=== PATIENT | male | born 1965 | race Caucasian/White ===

== ENCOUNTER → 2017-01-15 | Outpatient (CLI) | payer OTHER ==
[~2017-01-15] MED LIST: ALBU18002 INH; ALLO300T2 PO; AMLO-110 PO; CETI10TA10 PO; LISI-725 PO; OXYC-57 PO; PANT40TA PO
[2017-01-15 17:51] LABS: URINE APPEARANCE CLEAR (CLEAR); URINE BILIRUBIN NEG (NEG); URINE COLOR YELLOW; URINE NITRITE NEG (NEG); URINE SPECIFIC GRAVITY 1.021 (1.000-1.030); UROBILINOGEN NEG (NEG)
[2017-01-15 18:05] LABS: MANUAL MICROSCOPIC REQUIRED? NO; REVIEW REQ? NO
== END | disposition home or self-care (01) ==
LOC: C.LAB 17:20
PROVIDERS: ATTEND Physician Assistant
DX: R39.9 Unspecified symptoms and signs involving the genitourinary system (principal)

== ENCOUNTER → 2017-04-09 | Outpatient (CLI) | payer OTHER ==
--- NOTE | 2017-04-09 15:16 | DIAGNOSTIC IMAGING REPORT ---
CHEST 2 VIEWS ROUTINE CLINICAL HISTORY: 51 years-old Male presenting with Dry cough. TECHNIQUE: PA and lateral views of the chest were obtained. COMPARISON: CT from 03/18/2014 and chest x-ray from 03/15/2014. FINDINGS: Cardiomediastinal silhouette normal. Suggestion of vague reticulonodular opacities in the right lower lung though no correlate is noted on lateral view. No other focal infiltrate. No pleural effusion or pneumothorax. Osseous structures normal. Upper abdomen normal. IMPRESSION: 1. Questionable opacity in the right lower lung without correlate on lateral view. This may represent overlapping shadows. If there is clinical concern, chest CT to be obtained. Electronically signed by: Tom Galloway M.D. 04/09/2017 3:15 PM Dictated Date/Time: 04/09/2017 3:14 PM
== END | disposition home or self-care (01) ==
LOC: C.RADBC 14:32
PROVIDERS: ATTEND Physician Assistant
DX: R05 Cough (principal)

== ENCOUNTER 2017-08-24 20:32 | Emergency (ER) | payer OTHER ==
[~2017-08-24] VITALS: Ht 182.9 cm; Wt 142.1 kg
[2017-08-24 20:40] VITALS: TEMP 36.8; Ht 182.9 cm; Wt 142.1 kg
--- NOTE | 2017-08-24 21:33 | EMERGENCY ROOM VISIT NOTE ---
History First contact with patient: 20:59 Chief Complaint: ABDOMINAL PAIN Stated Complaint: STOMACH PAINS Nursing Triage Summary: Pt c/o pain throughout abd since 11 AM today, pt states that pain has been a steady pain since, also c/o chills. Pt denies n/v, urinary or bowel symptoms. History of Present Illness The patient is a 51 year old male who presents to the Emergency Room with complaints of intermittent abdominal pain since 1 hour after eating lunch. Patient states he and his ate lunch at approximately 1130. Patient denies any recent change in diet or new medications. No recent travel and no sick contacts. Patient states pain initially began in his lower abdomen but has since moved to the upper abdomen. States pain comes and goes, does not seem to be related to a particular position but does feel better laying down. States pain is sharp and feels as though it is moving around. No nausea or vomiting. Patient states he had 2 normal bowel movements this morning. No recent black or bloody stools. No change in urine or urinary habits. Patient states he had chills at home however took his temperature and did not have a fever. Patient with a known chronic umbilical hernia which she states is nontender and does not appear bigger to him than usual. Patient denies any abdominal distention. Patient had bilateral umbilical hernia repairs as an infant, has had no other abdominal surgeries. Review of Systems See HPI for pertinent positives & negatives. A total of 10 systems reviewed and were otherwise negative. Past Medical/Surgical History See HPI for pertinent positives & negatives. A total of 10 systems reviewed and were otherwise negative. Social History Smoking Status: Former Smoker Current/Historical Medications Scheduled Allopurinol (Zyloprim), 300 MG PO QAM W/FOOD Amlodipine (Norvasc), 5 MG PO QAM W/FOOD Cetirizine Hcl (Zyrtec), 10 MG PO QAM W/FOOD Dicyclomine Hcl (Bentyl), 20 MG PO Q8 Lisinopril (Zestril), 20 MG PO QAM W/FOOD Pantoprazole (Protonix), 40 MG PO QAM W/FOOD Scheduled PRN Albuterol Sulfate (Proair Respiclick), 2 PUFFS INH Q4H PRN for SOB/Wheezing Physical Exam Vital Signs Date Time Temp Pulse Resp B/P (MAP) Pulse Ox O2 Delivery O2 Flow Rate FiO2 4/15/18 22:35 89 20 140/89 97 Room Air 08/24/17 21:31 99 08/24/17 20:40 36.8 96 20 163/94 96 Room Air Physical Exam GENERAL: alert, well appearing, well nourished, no distress, non-toxic EYE EXAM: normal conjunctiva, PERRL and EOM's grossly intact OROPHARYNX: no exudate, no erythema, lips, buccal mucosa, and tongue normal and mucous membranes are moist NECK: supple, no nuchal rigidity, no adenopathy, non-tender LUNGS: Clear to auscultation. Normal chest wall mechanics, no w/r/r HEART: no murmurs, S1 normal and S2 normal ABDOMEN: abdomen soft, non-tender, normo-active bowel sounds, no masses, no rebound or guarding. Small umbilical hernia noted, nontender, and easily reducible. BACK: Back is symmetrical on inspection and there is no deformity, no midline tenderness, no CVA tenderness. SKIN: no rashes and no bruising UPPER EXTREMITIES: upper extremities are grossly normal. LOWER EXTREMITIES: No pitting edema. NEURO EXAM: Normal sensorium, cranial nerves II-XII grossly intact, normal speech, no gross weakness of arms, no gross weakness of legs. Gross sensation intact. Medical Decision & Procedures ER Provider Diagnostic Interpretation: ABD/PELVIS IV CONTRAST ONLY CLINICAL HISTORY: 51 years-old Male presenting with abd pain. TECHNIQUE: Multidetector CT of the abdomen and pelvis was performed after the administration of intravenous contrast. IV contrast: 93 mL of Optiray 320. A dose lowering technique was used consistent with the principles of ALARA (as low as reasonably achievable). COMPARISON: 12/15/2014. CT DOSE (mGy.cm): The estimated cumulative dose is 1904.81 mGy.cm. FINDINGS: Paper Grader topogram: Unremarkable. Lung bases: Lungs and pleural spaces clear. Normal heart size. No pericardial or pleural effusion. Liver: Normal morphology. No liver lesion. Patent hepatic vasculature. Biliary: No intrahepatic or extrahepatic biliary ductal dilatation. Normal gallbladder. Pancreas: Normal. Spleen: Few subcentimeter hypodensities in the spleen, indeterminate but possibly hemangiomas or lymphangiomas. Adrenal glands: Normal. Kidneys and ureters: Nonobstructing 5 mm calculus at the lower pole the right kidney. Additional punctate lower pole calculus in the right kidney. Punctate left renal calculi versus medullary pyramids calcification. No hydronephrosis. Normal renal enhancement. Ureters normal. Bladder: Incompletely evaluated secondary to underdistention. Pelvic organs: Prostate and seminal vesicles normal. Bowel: Normal. No bowel obstruction. Peritoneal cavity: No free fluid or intraperitoneal gas. Lymph nodes: No enlarged lymph nodes in the abdomen or pelvis. Vasculature: Aorta and IVC patent and normal in caliber. Abdominal wall: Small fat-containing umbilical hernia. Musculoskeletal: Degenerative changes of the spine. IMPRESSION: 1. Bilateral nonobstructing nephrolithiasis. No hydronephrosis. No evidence of a recently passed calculus. 2. No acute intra-abdominal pathology. Electronically signed by: Tom Galloway M.D. 08/24/2017 10:36 PM Dictated Date/Time: 08/24/2017 10:30 PM Laboratory Results 08/24/17 21:30 Red Blood Count 4.41, Mean Corpuscular Volume 87.8, Mean Corpuscular Hemoglobin 30.2, Mean Corpuscular Hemoglobin Concent 34.4, Mean Platelet Volume 9.5, Neutrophils (%) (Auto) 70.1, Lymphocytes (%) (Auto) 17.9, Monocytes (%) (Auto) 9.7, Eosinophils (%) (Auto) 1.9, Basophils (%) (Auto) 0.2, Neutrophils # (Auto) 6.24, Lymphocytes # (Auto) 1.59, Monocytes # (Auto) 0.86, Eosinophils # (Auto) 0.17, Basophils # (Auto) 0.02 08/24/17 21:30 Test 08/24/17 21:30 08/24/17 21:39 08/24/17 22:35 White Blood Count 8.90 K/uL (4.8-10.8) Red Blood Count 4.41 M/uL (4.7-6.1) Hemoglobin 13.3 g/dL (14.0-18.0) Hematocrit 38.7 % (42-52) Mean Corpuscular Volume 87.8 fL (80-100) Mean Corpuscular Hemoglobin 30.2 pg (25-34) Mean Corpuscular Hemoglobin Concent 34.4 g/dl (32-36) Platelet Count 195 K/uL (130-400) Mean Platelet Volume 9.5 fL (7.4-10.4) Neutrophils (%) (Auto) 70.1 % Lymphocytes (%) (Auto) 17.9 % Monocytes (%) (Auto) 9.7 % Eosinophils (%) (Auto) 1.9 % Basophils (%) (Auto) 0.2 % Neutrophils # (Auto) 6.24 K/uL (1.4-6.5) Lymphocytes # (Auto) 1.59 K/uL (1.2-3.4) Monocytes # (Auto) 0.86 K/uL (0.11-0.59) Eosinophils # (Auto) 0.17 K/uL (0-0.5) Basophils # (Auto) 0.02 K/uL (0-0.2) RDW Standard Deviation 43.3 fL (36.4-46.3) RDW Coefficient of Variation 13.6 % (11.5-14.5) Immature Granulocyte % (Auto) 0.2 % Immature Granulocyte # (Auto) 0.02 K/uL (0.00-0.02) Prothrombin Time 10.7 SECONDS (9.0-12.0) Prothromb Time International Ratio 1.0 (0.9-1.1) Anion Gap 6.0 mmol/L (3-11) Est Creatinine Clear Calc Drug Dose 117.3 ml/min Estimated GFR () 90.6 Estimated GFR (Non- 78.2 BUN/Creatinine Ratio 11.8 (10-20) Calcium Level 9.3 mg/dl (8.5-10.1) Total Bilirubin 0.8 mg/dl (0.2-1) Aspartate Amino Transf (AST/SGOT) 17 U/L (15-37) Alanine Aminotransferase (ALT/SGPT) 33 U/L (12-78) Alkaline Phosphatase 119 U/L (45-117) Troponin I < 0.015 ng/ml (0-0.045) Total Protein 7.8 gm/dl (6.4-8.2) Albumin 4.1 gm/dl (3.4-5.0) Globulin 3.7 gm/dl (2.5-4.0) Albumin/Globulin Ratio 1.1 (0.9-2) Lipase 219 U/L (73-393) Bedside Lactic Acid Venous 0.53 mmol/L (0.90-1.70) Urine Color YELLOW Urine Appearance CLEAR (CLEAR) Urine pH 5.5 (4.5-7.5) Urine Specific [place] 1.019 (1.000-1.030) Urine Protein NEG (NEG) Urine Glucose (UA) NEG (NEG) Urine Ketones NEG (NEG) Urine Occult Blood NEG (NEG) Urine Nitrite NEG (NEG) Urine Bilirubin NEG (NEG) Urine Urobilinogen NEG (NEG) Urine Leukocyte Esterase NEG (NEG) Medications Administered Medications (Trade) Dose Ordered Sig/Priscilla Route Start Time Stop Time Status Last Admin Dose Admin Dicyclomine HCl (Bentyl Cap) 20 mg NOW ONCE PO 08/24/17 22:15 08/24/17 22:16 DC 08/24/17 22:15 20 MG Ketorolac Tromethamine (Toradol Inj) 30 mg NOW STAT IV 08/24/17 23:03 08/24/17 23:04 DC 08/24/17 23:09 30 MG Famotidine (Pepcid 20mg Iv Push) 20 mg ONE STAT IV 08/24/17 23:03 08/24/17 23:04 DC 08/24/17 23:08 20 MG ECG Per My Interpretation Indication: abdominal pain Rate (beats per minute): 93 Rhythm: normal sinus Findings: no acute ischemic change, other (isolated inverted T wave in III) ED Course 2234: Patient updated on results, still having intermittent abdominal pain. 0: Patient states pain is improved. Discussed symptoms to watch and return for, diet and hydration at home, he verbalized understanding was agreeable with plan. Medical Decision Differential diagnosis: Etiologies such as appendicitis, diverticulitis, PUD, biliary pathology, UTI, pancreatitis, obstruction, mesenteric ischemia, aortic pathology, infections, inflammatory bowel disease, renal colic, as well as others were entertained. Medication Reconcilliation Current Medication List: was personally reviewed by me Blood Pressure Screening Patient's blood pressure: Elevated blood pressure Blood pressure disposition: Referred to PCP Impression Primary Impression: Abdominal pain Departure Information Dispostion Home / Self-Care Condition GOOD Prescriptions Dicyclomine Hcl (BENTYL) 10 Mg Cap 20 MG PO Q8 for Pain, #20 CAP Prov: Kelsey Whitehead, 08/25/17 Referrals Tom Correa M.D. (PCP) Patient Instructions My [facility] Additional Instructions Please drink clear liquids at frequent intervals to stay well-hydrated. Please eat a bland and light diet until you are feeling better. Please continue to monitor for any change in symptoms. If you have any worsening pain, develop a change in bowel movements including black or bloody stools, develop vomiting, fevers or chills, weakness or dizziness, you have any other new concerns, please return the emergency room. Problem Qualifiers Primary Impression: Abdominal pain Abdominal location: generalized Qualified Codes: R10.84 - Generalized abdominal pain
[2017-08-24 21:44] LABS: BASO % 0.2 %; BASO ABS # 0.02 K/uL (0-0.2); EOS % 1.9 %; EOS ABS # 0.17 K/uL (0-0.5); HEMATOCRIT 38.7 % (42-52); HEMOGLOBIN 13.3 g/dL (14.0-18.0); IG# 0.02 K/uL (0.00-0.02); LYMPH % 17.9 %; LYMPH ABS # 1.59 K/uL (1.2-3.4); MEAN CELL VOLUME 87.8 fL (80-100); MEAN CORPUSCULAR HEMOGLOBIN 30.2 pg (25-34); MEAN CORPUSCULAR HGB CONC 34.4 g/dl (32-36); MEAN PLATELET VOLUME 9.5 fL (7.4-10.4); MONO % 9.7 %; MONO ABS # 0.86 K/uL (0.11-0.59); NEUT % 70.1 %; NEUT ABS # 6.24 K/uL (1.4-6.5); PLATELET COUNT 195 K/uL (130-400); RED CELL DISTRIBUTION WIDTH CV 13.6 % (11.5-14.5); RED CELL DISTRIBUTION WIDTH SD 43.3 fL (36.4-46.3)
[2017-08-24] MEDS ORDERED: OPTIRAY 320 IV PRN (22:00)
[2017-08-24 22:01] LABS: ALBUMIN 4.1 gm/dl (3.4-5.0); ALT/SGPT 33 U/L (12-78); AST/SGOT 17 U/L (15-37); BLOOD UREA NITROGEN 13 mg/dl (7-18); CALCIUM 9.3 mg/dl (8.5-10.1); CARBON DIOXIDE 29 mmol/L (21-32); CREATININE 1.09 mg/dl (0.60-1.40); GLUCOSE 100 mg/dl (70-99); LIPASE 219 U/L (73-393); POTASSIUM 3.8 mmol/L (3.5-5.1); SODIUM 138 mmol/L (136-145)
[2017-08-24 22:06] LABS: ALKALINE PHOSPHATASE 119 U/L (45-117); TOTAL PROTEIN 7.8 gm/dl (6.4-8.2)
[2017-08-24] MEDS ORDERED: DICYCLOMINE HCL 10 MG CAP PO ONE (22:15)
[2017-08-24 22:35] VITALS: BP 140/89; PULSE 89; O2SAT 97
--- NOTE | 2017-08-24 22:38 | DIAGNOSTIC IMAGING REPORT ---
ABD/PELVIS IV CONTRAST ONLY CLINICAL HISTORY: 51 years-old Male presenting with abd pain. TECHNIQUE: Multidetector CT of the abdomen and pelvis was performed after the administration of intravenous contrast. IV contrast: 93 mL of Optiray 320. A dose lowering technique was used consistent with the principles of ALARA (as low as reasonably achievable). COMPARISON: 12/15/2014. CT DOSE (mGy.cm): The estimated cumulative dose is 1904.81 mGy.cm. FINDINGS: Medical Technical Writer topogram: Unremarkable. Lung bases: Lungs and pleural spaces clear. Normal heart size. No pericardial or pleural effusion. Liver: Normal morphology. No liver lesion. Patent hepatic vasculature. Biliary: No intrahepatic or extrahepatic biliary ductal dilatation. Normal gallbladder. Pancreas: Normal. Spleen: Few subcentimeter hypodensities in the spleen, indeterminate but possibly hemangiomas or lymphangiomas. Adrenal glands: Normal. Kidneys and ureters: Nonobstructing 5 mm calculus at the lower pole the right kidney. Additional punctate lower pole calculus in the right kidney. Punctate left renal calculi versus medullary pyramids calcification. No hydronephrosis. Normal renal enhancement. Ureters normal. Bladder: Incompletely evaluated secondary to underdistention. Pelvic organs: Prostate and seminal vesicles normal. Bowel: Normal. No bowel obstruction. Peritoneal cavity: No free fluid or intraperitoneal gas. Lymph nodes: No enlarged lymph nodes in the abdomen or pelvis. Vasculature: Aorta and IVC patent and normal in caliber. Abdominal wall: Small fat-containing umbilical hernia. Musculoskeletal: Degenerative changes of the spine. IMPRESSION: 1. Bilateral nonobstructing nephrolithiasis. No hydronephrosis. No evidence of a recently passed calculus. 2. No acute intra-abdominal pathology. Electronically signed by: Tom Galloway M.D. 08/24/2017 10:36 PM Dictated Date/Time: 08/24/2017 10:30 PM
[2017-08-24] MEDS ORDERED: KETOROLAC TROMETHAMINE 30 MG/ML VIAL IV STA (23:03)
[2017-08-24] MEDS ORDERED: FAMOTIDINE 20MG/5ML IV PUSH IV STA (23:03)
[2017-08-25] MEDS ORDERED: DICY10CA55 PO
== END 2017-08-25 00:12 | disposition home or self-care (01) ==
LOC: C.EDB 20:33 → C.EDC 08-25 00:12
DX: R10.10 Upper abdominal pain, unspecified (principal); R03.0 Elevated blood-pressure reading, without diagnosis of hypertension; K42.9 Umbilical hernia without obstruction or gangrene; Z87.891 Personal history of nicotine dependence

== ENCOUNTER 2024-02-09 05:08 | Observation (INO) ==
--- NOTE | 2024-01-16 11:54 | PAT Medication Instructions ---
Medication Instructions Date of Service January 16, 2024 Home Medications Medication Instructions Recorded pantoprazole 40 mg tablet,delayed 40 mg PO QAM #90 tabs 08/27/23 release (Protonix) duloxetine 20 mg capsule,delayed 20 mg PO QAM #90 caps 09/23/23 release vmoetib-wybdulsccrokd-zzcbfgpx 250 mg-250 mg-65 mg tablet (Excedrin Migraine) 2 tab PO DAILY PRN Migraine Headache loratadine 10 mg tablet (Claritin) 10 mg PO QAM pantoprazole 40 mg tablet,delayed release (Protonix) 40 mg PO QAM duloxetine 20 mg capsule,delayed release 20 mg PO QAM albuterol sulfate 90 mcg/actuation aerosol inhaler 1 inh inhalation Q6 PRN Shortness Of Breath allopurinol 300 mg tablet 300 mg PO QAM amlodipine 5 mg tablet 5 mg PO QAM clobetasol 0.05 % topical cream 1 applic topical BID PRN Rash hydrochlorothiazide 25 mg tablet 25 mg PO QAM lisinopril 20 mg tablet 20 mg PO QAM ASK your surgeon for instructions dtjkzxy-lbsbmpazenjnd-jutygfst 250 mg-250 mg-65 mg tablet (Excedrin Migraine) 2 tab PO DAILY PRN Migraine Headache STOP taking 24 hours before surgery clobetasol 0.05 % topical cream 1 applic topical BID PRN Rash DO NOT take the morning of surgery loratadine 10 mg tablet (Claritin) 10 mg PO QAM hydrochlorothiazide 25 mg tablet 25 mg PO QAM lisinopril 20 mg tablet 20 mg PO QAM Take morning of surgery With a small sip of water, OTHERWISE NOTHING TO EAT OR DRINK AFTER MIDNIGHT: pantoprazole 40 mg tablet,delayed release (Protonix) 40 mg PO QAM duloxetine 20 mg capsule,delayed release 20 mg PO QAM albuterol sulfate 90 mcg/actuation aerosol inhaler 1 inh inhalation Q6 PRN Shortness Of Breath (use if needed; please bring rescue inhaler with you to hospital day of surgery if possible) allopurinol 300 mg tablet 300 mg PO QAM amlodipine 5 mg tablet 5 mg PO QAM Take evening before surgery albuterol sulfate 90 mcg/actuation aerosol inhaler 1 inh inhalation Q6 PRN Shortness Of Breath (if needed) Other Notes If you have any questions please call us at [phone] or [phone] or [phone] or [phone]
--- NOTE | 2024-01-23 09:51 | Anesthesiology Consultation ---
Date of Service January 23, 2024 Assessment & Plan (1) Encounter for pre-operative examination: - awaiting [place] PCP clearance. - Patient and surgeon's office made aware he will need clearance. Workload note sent to [place] PCP. - Patient states he typically takes medication with food, states though he feels it will be fine to take amlodipine and pantoprazole NPO. - Patient notes that after shoulder surgery he had an erythematous pruritic rash in area wipes/prep DOS were used, he notes that he used chlorhexidine wipes and did not develop a rash until after surgery; denies blisters/swelling or systemic symptoms. Resolved quickly with clobetasol cream. We discussed option of trial ing chlorhexidine wipes before the evening before surgery for confirmation it did not contribute to rash and he plans to trial this on an arm during the day and notify our office if he has any reaction. Surgeon's office notified. - Outpatient joint assessment: Patient is currently scheduled for inpatient pathway. If re-evaluated and patient/surgeon requests outpatient pathway, patient is not ideal candidate for outpatient joint program from anesthesia standpoint. Chart Review Chart Review: Pending: Refer to Additional Notes / Consult section and Patient seen in Pre Admission Testing Teaching & Discussion Pre-Anesthesia Teaching/Discussion Notes: Instructed NPO after midnight before surgery, except medications with 15 cc of water. Medication instructions provided according to the PAT guidelines. History Surgery Operation Date: 02/09/24 10:40 Proposed Procedures p Right Total Knee Arthroplasty - Micheal Perez MD Height/Weight Height: 6 ft 1 in Weight: 152.1 kg Allergies Allergy/AdvReac Type Severity Reaction Status Date / Time gabapentin Allergy Severe throat and Verified 01/15/24 11:48 chest tightness levofloxacin Allergy Severe LARGE RASH Verified 01/15/24 11:48 ON BACK AND NECK doxycycline Allergy Intermediate Rash Verified 01/15/24 11:48 adhesive tape Allergy Mild Rash Verified 01/15/24 12:06 cephalexin Allergy Mild Rash Verified 01/15/24 11:48 Penicillins Allergy Mild RASH Verified 01/15/24 11:48 Sulfa (Sulfonamide Allergy Mild "I DON'T Verified 01/15/24 11:48 Antibiotics) REMEMBER" sulfamethoxazole Allergy Mild "I DON'T Verified 01/15/24 11:48 REMEMBER" trimethoprim Allergy Mild "I DON'T Verified 01/15/24 11:48 REMEMBER" fexofenadine [From [facility]] Allergy Unknown CAN'T Verified 01/15/24 11:48 REMEMBER nitrofurantoin Allergy Unknown UNKNOWN Verified 01/15/24 11:48 duloxetine AdvReac Mild itching Verified 01/15/24 12:06 Medications Home Medications Medication Instructions Recorded Confirmed Last Taken anuvctm-wyegjbxisbexl-exkmjlbu 250 2 tab PO DAILY PRN Migraine 02/04/18 01/15/2410/02/20 mg-250 mg-65 mg tablet (Excedrin Headache Migraine) loratadine 10 mg tablet (Claritin) 10 mg PO QAM 01/02/21 01/15/24 02/19/23 10:00 pantoprazole 40 mg tablet,delayed 40 mg PO QAM #90 tabs 08/27/23 01/15/24 Unknown release (Protonix) duloxetine 20 mg capsule,delayed 20 mg PO QAM #90 caps 09/23/23 01/15/24 Unknown release albuterol sulfate 90 mcg/actuation 1 inh inhalation Q6 PRN Shortness 01/15/24 01/15/24 Unknown aerosol inhaler Of Breath allopurinol 300 mg tablet 300 mg PO QAM 01/15/24 01/15/24 Unknown amlodipine 5 mg tablet 5 mg PO QAM 01/15/24 01/15/24 Unknown clobetasol 0.05 % topical cream 1 applic topical BID PRN Rash 01/15/24 01/15/24 Unknown hydrochlorothiazide 25 mg tablet 25 mg PO QAM 01/15/24 01/15/24 Unknown lisinopril 20 mg tablet 20 mg PO QAM 01/15/24 01/15/24 Unknown walker #1 ea 01/23/24 01/23/24 Unknown Past Medical History Medical History (Updated 01/23/24 @ 10:04 by Vicky Salvador PA-C) Adult situational stress disorder Asthma rescue inhaler is used daily chronically per patient Chronic venous insufficiency Dyslipidemia GERD (gastroesophageal reflux disease) controlled, stable per pt History of anemia History of COVID-2022--mild symptoms, no symptoms now History of kidney stones Hx of gout Hypertension controlled, stable per pt Lymphedema hx due to chronic venous insufficiency Neuropathic pain Osteoarthritis Situational depression Sleep apnea no device used by patient Venous stasis ulcer hx of--healed, treated at wound clinic Patient denies h/o stroke, seizures, heart attack, heart failure, DM, blood clots/DVTs or blood transfusions. Exercise / Class Metabolic Activity II 4-5 Yardwork/Stairs/Walk up hill (denies chest discomfort or shortness of breath with one flight of stairs) Past Family History Family History Father Prostate cancer Lung cancer Stroke Mother Breast cancer Aortic aneurysm Other No family history of adverse response to anesthesia Denies family history of Ovarian cancer Myocardial infarction Colorectal cancer Past Surgical History Surgical History (Updated 01/23/24 @ 10:05 by Vicky Salvador PA-C) H/O oral surgery History of appendectomy History of arthroscopy of left shoulder (02/20/23) Left Shoulder Arthroscopy, Subscapularis Rotator Cuff Repair, extensive debridement, subacromial Decompression, arthroscopic biceps Tenodesis(Left) - Dean Ugalde MD History of arthroscopy of right knee History of cystoscopy History of hernia repair bilat inguinal hernias History of lithotripsy History of surgery (~2018) right bicep repair [place] teeth removed Past Anesthesia History No Family Hx of Anesthesia Complications and Other (patient states that once after surgery 30 years was found to be hyperactive and doing jumping jacks in post-op) History of PONV No Hx of PONV and No Hx of Motion Sickness Social History Smoking Status: Former smoker tobacco type: cigarettes Smoking cigarettes per day: 2015 Do You Dip or Chew Tobacco: No Hx Alcohol Use: Yes (very rarely) Alcohol type: beer alcohol intake frequency: holidays/special occasions only Hx Substance Use: No substance use type: does not use Review of Systems Patient states that he has had infectious symptoms for 3 weeks since his was ill last month. He is experiencing nasal congestion, chest congestion, sore throat, cough which is non-productive shortness of breath using albuterol inhaler daily which was his average prior to illness; states that chills and myalgias occurred 6 days ago; he states that today is only experiencing sore throat; denies chest discomfort, fever, nausea, vomiting or rash. COVID test is negative. Patient denies chest pain, shortness of breath, dyspnea on exertion, or palpitations. Physical Exam Vital Signs Vitals BP 131/68 P 72 TEMP 97.6 SP02 95% on RA RESP 18 Physical Patient resting comfortably in chair in no acute distress, alert and oriented, responding appropriately throughout visit Full cervical extension range of motion without pain TMD < 3 finger breadths Mallampati Score 3 Dentition: several broken teeth; denies chipped or loose teeth, caps/crowns, implants or bridges Lungs: normal respiratory effort. Good air movement, clear throughout to auscultation, no adventitious breath sounds Cardiac: regular rate and rhythm, no murmurs noted Carotid arteries: negative bruit bilat Lab Results Anesthesia Preop Results Results Anesthesia Widget: WBC 6.70 K/ul (4.8-10.8) 01/23/24 Hgb 11.7 g/dl (14.0-18.0) L 01/23/24 Hct 36.1 % (42.0-52.0) L 01/23/24 Plt 224 K/uL (130-400) 01/23/24 Na 139 mmol/L (136-145) 01/23/24 K 4.1 mmol/L (3.5-5.1) 01/23/24 Cl 101 mmol/L (98-107) 01/23/24 CO2 32 mmol/L (21-32) 01/23/24 BUN 15 mg/dl (6-23) 01/23/24 Creat 0.84 mg/dl (0.6-1.4) 01/23/24 Glucose Level 92 mg/dl (70-99(Fasting)) 01/23/24 PT 10.7 Seconds (9.0-12.0) 01/23/24 PTT 27 Seconds (21-31) 01/23/24 INR 1.0 (0.9-1.1) 01/23/24 COVID-19 PCR NEGATIVE (Negative) 01/23/24 Blood Type O Positive 01/23/24 Antibody Screen NEGATIVE 01/23/24 Testing Electrocardiogram Date: 01/23/24 Sinus rhythm with premature atrial complexes, rate 72 bpm Chest X-Ray Date: 01/23/24 No acute cardiopulmonary findings. Echocardiogram Date: 11/29/19 EF 60-65% No LV regional wall motion abnormalities Grade I diastolic dysfunction Mild cLVH Mildly dilated LA
[~2024-02-09 05:08] MED LIST changes: -ALBU18002 INH; +ALLERGY Noted to ORDERED Medication SCH; -ALLO300T2 PO; -AMLO-110 PO; -CETI10TA10 PO; -LISI-725 PO; -OXYC-57 PO; -PANT40TA PO
[2024-02-09] MEDS: METOCLOPRAMIDE HCL 10 MG TABLET PO SCH (05:49)
[2024-02-09] MEDS: CeleBREX 200 MG CAP PO SCH (05:49)
[2024-02-09] MEDS: ACETAMINOPHEN 500 MG TAB PO SCH ×3 (05:49→20:39)
[2024-02-09] MEDS: LR 500ML BOLUS, THEN 15ML/HR IV SCH (05:49)
[2024-02-09] MEDS: FAMOTIDINE 20 MG TAB PO SCH (05:50)
[2024-02-09] MEDS: LR 60ML/HR IV SCH (05:50)
[2024-02-09] MEDS ORDERED: ROPIVACAINE 0.5% 5 MG/ML 30 ML VIAL ONE (06:23)
[2024-02-09] MEDS ORDERED: BUPIVACAINE 0.5 % 5 MG/1 ML PF 10ML VIAL ONE (06:23)
[2024-02-09] MEDS ORDERED: MIDAZOLAM HCL 1 MG/ML 2ML VIAL ONE (06:36)
--- NOTE | 2024-02-09 06:42 | History & Physical Bridge Note ---
Date of Service February 09, 2024 History & Physical Bridge Note I have examined the patient, reviewed the History & Physical and in the interval since the performance of the History & Physical I have noted the following changes of clinical significance: no changes noted
[2024-02-09] MEDS ORDERED: Nursing to Pharmacy Communication SCH ×2 (06:45→14:15)
[2024-02-09] MEDS ORDERED: PROPOFOL IV EMULSION 10 MG/ML 100 ML VIAL IV ONE (06:47)
[2024-02-09] MEDS: ceFAZolin 3000MG 3,000 MG/72.5 ML BAG IV SCH (06:58)
[2024-02-09] MEDS ORDERED: fentaNYL citrate PF 100 MCG/2 ML VIAL IV PRN (07:08)
[2024-02-09] MEDS ORDERED: ATROPINE SULFATE 0.1 MG/ML 10ML SYR IV PRN (07:08)
[2024-02-09] MEDS ORDERED: ONDANSETRON INJ 2 MG/ML 2 ML VIAL IV PRN ×2 (07:08→09:51)
[2024-02-09] MEDS ORDERED: ePHEDrine sulfate 50 MG/ML AMP IV PRN (07:08)
[2024-02-09] MEDS ORDERED: ePHEDrine sulfate 50 MG/ML AMP ONE (07:23)
[2024-02-09] MEDS ORDERED: PHENYLEPHRINE 100MCG/ML 10ML SYR IV ONE (07:23)
[2024-02-09] MEDS: ROPIV 0.5% 246mg, Ketorolac 30mg, EPINEPHrine 0.5mg in NSS INFIL SCH (07:29)
[2024-02-09] MEDS: ORTHO JOINT ANESTHETIC ONE (07:30)
[2024-02-09] MEDS: TRANEXAMIC ACID 1,000 MG **IV Intra-op IV SCH (07:47)
[2024-02-09] MEDS: VANCOMYCIN HCL 1000MG/20ML VIAL ONE (07:59)
[2024-02-09] MEDS ORDERED: PHENYLEPHRINE HCL 10 MG/ML VIAL ONE (08:00)
--- NOTE | 2024-02-09 08:51 | Operative Report ---
PG Post Operative Report Pre & Post Diagnosis Operation Date: 02/09/24 07:00 Pre-Op Diagnosis: Right Knee Advanced Degenerative Joint Disease Post-Op Diagnosis: Right Knee Advanced Degenerative Joint Disease I identified the patient and participated in the time-out.: Yes Procedure Operation Date: 02/09/24 07:00 Actual Procedures p Right Total Knee Arthroplasty(Right) - Micheal Perez MD Surgeon Micheal Perez MD Premium Cancellation Clerk Erich Cleveland PA-C Estimated Blood Loss 100 Findings Consistent with Post-Op Diagnosis Operative findings revealed moderate to advanced right knee tricompartment DJD. He did have focal areas of grade 4 changes in all 3 compartments most severe on the medial side. Not much in way of bony eburnation. Moderate-sized joint effusion. Very large soft tissue envelope. Specimens Right knee sent for pathology. Anesthesia Type Spinal MAC Complications none Disposition Accompanied Patient To Recovery: No Indications The patient is a 58-year-old very large gentleman whose had a several year history of increasing right knee pain discomfort. He had a previous knee arthroscopy done elsewhere about 4 years ago with minimal relief. X-rays show progressive knee arthritis. He failed all conservative measures. He elected proceed with total knee arthroplasty. Description of Procedure Operative implants consist of: 1. Biomet Vanguard size 70 right posterior stabilized femoral component. 2. Biomet size 79 tibial tray. 3. 10 mm posterior stabilized polyethylene insert. 4. 34 x 8-1/2 all poly patella. The patient was taken to the op room, identified, placed on the operating table in the supine position but all conductors were appropriately padded. IV antibiotics tried by anesthesia team. A spinal anesthetic and adductor canal block had been provided in the holding area. A right thigh turn was then placed. The right lower extremity was then prepped and draped in usual sterile fashion. The right leg was elevated and exsanguinated with use of an Esmarch and a turn was placed at 350 mmHg. An anterior approach to the right knee was then performed to longitudinal incision centered over the patella. Sharp dissection was Through subcutaneous tissue down the extensor mechanism. A medial parapatellar arthrotomy incision was made. Some subperiosteal dissection was carried out medially. The fat pad was dissected beneath the patella tendon. The lateral patellofemoral ligament was released. Patella subluxated laterally and the knee was flexed. The osteophytes taken off distal femur. The ACL and PCL were then released from the distal femur and in the tibia subluxate anteriorly. The external tibial alignment jig was then placed on the anterior face the tibia and adjusted 14 mm medially. Proximal tibial cut was made to take about 2 to 3 mm of bone from the medial side. He did not have much in the way of bony wear. The tibia was sized to a size 79 in order to maximize coverage. Attention drawn the femur. The distal femur with a sharp drill. Intramedullary canal was suction. A right 6 degree valgus cutting guide was placed but the distal femoral cutting block was pinned in place. This femoral cut was made to take an additional 3 mm of bone off distal femur. The femur was then sized to a size 70. The AP cutting block was pinned parallel to the epicondylar axis which was 3 degrees of exte rnal rotation. The anterior cut, anterior chamfer, posterior cut, posterior chamfer cuts were made. The box cutting guide was placed in the just slight lateral box cut was made. The knee was flexed. The remnants of the medial and lateral menisci were excised. The osteophyte taken off the posterior aspect the femur. A trial femoral component was placed. The tibial tray was pinned Brianna external rotation and the drill and stem punch were used. Defect in proximal tibia for the tibial tray. Knee was then trialed and the 10 mm insert fit most appropriately. Attention drawn the patella. The patella was cleaned of all soft tissue. Patella thickness measured 23 mm in thickness was cut down to 14. Was sized to a size 34 patella. The lug holes were drilled for 34 patella. The lateral osteophytes removed. Patella button was placed. Knee was taken through range of motion and the patella tracked nicely with no thumbs test. Attention drawn to place the permanent components. All trial components were removed. Bone plug was placed into this femur limit blood loss. A double batch [place] G cement was mixed. I did add an additional gram of vancomycin due to this patient's large size and venous stasis changes and concern for increased risk of infection. A Biomet Vanguard size 70 right posterior Byce femoral component, size 79 tibial tray, 10 mm posterior Byce polyethylene insert, and a 34 x 8 and half all poly patella then cemented in place. The knee was brought out into full extension till cement hardened. Final symmetric exam performed. Pericapsular tissues were injected with total of 100 cc of Ortho mix. Patient did receive 1 g tranexamic acid. The tourniquet was then let down for final turn time 59 minutes. Hemostasis assured use electrocautery. Wounds once again irrigated. We did do the Betadine soak for a minimum of 3 minutes. The wounds once again irrigated. Extensor Meclomen closed with combination 1 PDS suture #1 Vicryl suture in a [id number] fashion. Extensor Meclomen checked found to be intact the subcutaneous tissue then closed with 2 Dexon suture in a buried interrupted fashion skin was closed skin imani. Leg was then cleaned and dried a sterile dressing was Xeroform, 4 fours, sterile cast padding, Jerardo bandage were applied. Patient then transferred to the recovery room in stable condition. The patient tolerated procedure well and no complications. Erich Cleveland, my physician nurseryman assistant, was present for the entire procedure. His assistance was essential and required for appropriate patient positioning, prepping and draping, surgical exposure, performing the technical details of the operation, placement the implants, closure of the wound, and placement of the sterile bandage. I attest to the content of the Intraoperative Record and any orders documented therein. Any exceptions are noted below.
--- NOTE | 2024-02-09 09:06 | XRay Report ---
XR knee RT 1 or 2V routine CLINICAL HISTORY: Surgical Post Op TECHNIQUE: 2 views of the right knee were obtained. Comparison: Comparison is made to knee radiographs 08/23/2020 FINDINGS: Patient is status post total knee arthroplasty with expected postsurgical changes including soft tiss ue swelling and subcutaneous emphysema. No periarticular lucency or hardware fracture is seen. IMPRESSION: Expected postoperative appearance status post placement of total knee arthroplasty. ACT 112: Negative or not required by law. Electronically signed by: James Avila M.D. 02/09/2024 9:04 AM
--- NOTE | 2024-02-09 09:41 | Anesthesiology Progress Note ---
Date of Service February 09, 2024 Anesthesia Post Procedure Vital Signs Vital Signs: Temp Pulse Resp BP Pulse Ox O2 Del Method O2 Flow Rate 02/09/24 09:25 97.5 F L 83 19 111/65 96 Room Air 02/09/24 09:15 80 16 108/63 95 Room Air 02/09/24 09:05 82 21 106/73 98 Room Air 02/09/24 08:55 82 20 115/71 100 Oxymask 6 02/09/24 08:47 96.8 F L 90 21 112/60 100 Oxymask 6 02/09/24 05:38 97.9 F 99 H 22 119/74 100 Room Air Transfer of Care Handoff Completed per policy Notes Mental Status: alert / awake / arousable and participated in evaluation Patient Amnestic to Procedure: Yes Nausea / Vomiting: adequately controlled Pain: adequately controlled Airway Patency, RR, SpO2: stable & adequate BP & HR: stable & adequate Hydration State: stable & adequate Neuraxial Anesthesia: was administered and sensory block is resolving Anesthetic Complications: no major complications apparent and Pt Satisfied with anesthetic care
[2024-02-09] MEDS ORDERED: ALUMINUM/MAGNESIUM SUSP 30 ML UDC PO PRN (09:51)
[2024-02-09] MEDS ORDERED: SENNA 8.6 MG TAB PO SCH (09:51)
[2024-02-09] MEDS ORDERED: MAGNESIUM HYDROXIDE SUSP 30 ML UDC PO PRN (09:51)
[2024-02-09] MEDS ORDERED: HYDROmorphone INJ 0.5 MG/0.5 ML SYR IV PRN (09:51)
[2024-02-09] MEDS ORDERED: CLOBETASOL PROPIONATE 0.05% CREAM 15 GM TUBE TOP PRN (09:51)
[2024-02-09] MEDS ORDERED: METOCLOPRAMIDE HCL INJ 5 MG/ML 2 ML VIAL IV PRN (09:51)
[2024-02-09] MEDS ORDERED: ALBUTEROL HFA 8 GM INHALER INH PRN (09:51)
[2024-02-09] MEDS ORDERED: diphenhydrAMINE Capsule 25 MG CAP PO PRN (09:51)
[2024-02-09] MEDS ORDERED: bisacodyL 10 MG SUPP PR PRN (09:51)
[2024-02-09] MEDS ORDERED: NALOXONE HCL 0.4 MG/1 ML VIAL/CARP IV PRN (09:51)
[2024-02-09] MEDS ORDERED: oxyCODONE HCL IR 5 MG TAB (IMMEDIATE RELEASE) PO PRN (09:51)
[2024-02-09] MEDS ORDERED: NON-FORMULARY MEDICATION (Aspirin-Acetaminophen-Caffeine [Excedrin Migraine] 250-250-65 mg PO PRN (09:51)
[2024-02-09] MEDS: ceFAZolin 3000MG/72.5 ML BAG IV ONE (10:11)
[2024-02-09] MEDS: SODIUM CHLORIDE 0.9% 1,000 ML IV SCH (10:57)
[2024-02-09] MEDS: PANTOprazole 40 MG TAB PO SCH (10:58)
[2024-02-09] MEDS: amLODIPine BESYLATE 5 MG TAB PO SCH (10:58)
[2024-02-09] MEDS: hydroCHLOROthiazide 25 MG TAB PO SCH (11:00)
[2024-02-09] MEDS: lisinopril 20 MG TAB PO SCH (11:01)
[2024-02-09] MEDS: DULoxetine HCL 20 MG CAP PO SCH (11:01)
[2024-02-09] MEDS: LORATADINE 10 MG TAB PO SCH (11:01)
[2024-02-09] MEDS: ASPIRIN 81 MG ECTAB PO SCH (11:01)
[2024-02-09] MEDS: allopurinoL 300 MG TAB PO SCH (11:01)
[2024-02-09] MEDS: MULTIVITAMIN TAB PO SCH (11:01)
[2024-02-09] MEDS: TAMSULOSIN HCL 0.4 MG CAP PO SCH (11:07)
[2024-02-09] MEDS: KETOROLAC 30 MG/ML VIAL IV SCH (11:09)
[2024-02-09] MEDS: DOCUSATE SODIUM 100 MG CAP PO SCH (11:09)
[2024-02-09] MEDS: TRANEXAMIC ACID / 0.7% NACL 1,000 MG/100 ML BAG IV SCH (14:19)
[2024-02-09] MEDS: ceFAZolin 2000MG 2,000 MG/15 ML SYR IV SCH (15:17)
[2024-02-09] MEDS: ASCORBIC ACID 500 MG TAB PO SCH (18:16)
[2024-02-09] MEDS: SENNA 8.6 MG TAB PO SCH (20:41)
[2024-02-10 06:03] LABS: Hematocrit (blood only) 33.2 % (42.0-52.0); Hemoglobin 10.8 g/dl (14.0-18.0); Mean Corpuscular Hemoglobin 28.3 pg (25.0-34.0); Mean Corpuscular Hgb Conc 32.5 g/dL (32.0-36.0); Mean Corpuscular Volume 87.1 fL (80.0-100.0); Platelet Count 172 K/uL (130-400); RDW Coefficient of Variation 13.4 % (11.5-14.5); RDW Standard Deviation 42.3 fL (36.4-46.3); Red Blood Count 3.81 M/uL (4.70-6.10); White Blood Count 5.32 K/ul (4.8-10.8)
[2024-02-10 06:21] LABS: BUN Creatinine Ratio 18.9 (10-20); Calcium 8.9 mg/dl (8.6-10.3); Creatinine Clr Calc Pharmacy 130.3 ml/min; Est GFR (African American) 101.9 ml/min; Est GFR (Non-African American) 87.9 ml/min; Potassium 3.5 mmol/L (3.5-5.1)
[2024-02-10 08:10] VITALS: RESP 19; TEMP 99.5; O2SAT 90
[2024-02-10] MEDS: dexAMETHasone 10 MG in SYRINGE 0 ML IV SCH (08:48)
[2024-02-10 11:47] VITALS: BP 129/78; PULSE 83
--- NOTE | 2024-02-12 16:24 | Discharge Summary ---
Date of Service February 12, 2024 Discharge Data Procedures Performed Operation Date: 02/09/24 07:00 Actual Procedures p Right Total Knee Arthroplasty(Right) - Micheal Perez MD Hospital Course (1) Status post total right knee replacement: This is a 58 year old patient admitted on 02/09/24 and underwent total knee arthroplasty. He tolerated the procedure well and there were no complications. T ransferred to the PACU post op and later to the orthopedic floor for further care. He was given ancef for antibiotic prophylaxis. He was also given VERN stockings, SCDs, and aspirin for DVT prophylaxis. Hemoglobin, hematocrit, and vital signs were monitored during his hospital stay and remained stable. Did not require any blood transfusions. There were no complications during his hospital stay. By post op day #1 the patient was tolerating a regular diet, pain was reasonably controlled with oral pain medicine, and he was participating in physical therapy. On post op day #1 the patient was discharged home and set up with home health care. He was given printed discharge instructions including prescriptions for extra strength tylenol, aspirin, cefadroxil, ketorolac, zofran, oxycodone, senokot, and flomax. Continue physical therapy, weight bearing as tolerated. Continue VERN stockings. Follow up approximately 2 weeks post op or sooner if there are problems or concerns. Coding Level of Care Code None Diagnoses Status post total right knee replacement Z96.651
== END 2024-02-10 13:23 | disposition home health service (06) ==
LOC: 3E 05:08 → ASU 05:08
DX: I10 Essential (primary) hypertension; F32.A Depression, unspecified; G47.33 Obstructive sleep apnea (adult) (pediatric); K21.9 Gastro-esophageal reflux disease without esophagitis; Z79.82 Long term (current) use of aspirin; E66.01 Morbid (severe) obesity due to excess calories; M17.11 Unilateral primary osteoarthritis, right knee; Z79.899 Other long term (current) drug therapy; Z68.41 Body mass index [BMI] 40.0-44.9, adult; J45.909 Unspecified asthma, uncomplicated; Z88.2 Allergy status to sulfonamides; F41.9 Anxiety disorder, unspecified; Z88.8 Allergy status to other drugs, medicaments and biological substances